=== PATIENT | male | born 1945 | race Caucasian/White ===

== ENCOUNTER 2016-09-24 02:25 | Emergency (ER) | payer OTHER ==
[~2016-09-24] VITALS: Ht 167.6 cm; Wt 96.5 kg
[2016-09-24 02:36] VITALS: TEMP 36.5; Ht 167.6 cm; Wt 96.5 kg
[2016-09-24 03:07] LABS: BASO % 0.4 %; BASO ABS # 0.02 K/uL (0-0.2); COMPLETE YES; EOS % 1.4 %; HEMATOCRIT 40.3 % (42-52); LYMPH % 18.4 %; LYMPH ABS # 1.04 K/uL (1.2-3.4); MEAN CELL VOLUME 86.7 fL (80-100); MEAN CORPUSCULAR HEMOGLOBIN 29.2 pg (25-34); MEAN CORPUSCULAR HGB CONC 33.7 g/dl (32-36); MEAN PLATELET VOLUME 8.7 fL (7.4-10.4); MONO % 7.4 %; NEUT % 72.4 %; PLATELET COUNT 164 K/uL (130-400); RED BLOOD COUNT 4.65 M/uL (4.7-6.1); WHITE BLOOD COUNT 5.65 K/uL (4.8-10.8)
[2016-09-24 03:26] LABS: BUN/CREATININE RATIO 19.1 (10-20); CREATININE 0.87 mg/dl (0.60-1.40); POTASSIUM 3.8 mmol/L (3.5-5.1)
[2016-09-24 03:35] LABS: ALB/GLOB RATIO 1.3 (0.9-2)
[2016-09-24] MEDS ORDERED: MoRPHine SULFATE 4 MG/ML 1 ML CARP\\VIAL ONE (04:16)
[2016-09-24] MEDS ORDERED: ONDANSETRON INJ 2 MG/ML 2 ML VIAL ONE (04:17)
--- NOTE | 2016-09-24 05:04 | EMERGENCY ROOM VISIT NOTE ---
History First contact with patient: 02:38 Chief Complaint: FALL Stated Complaint: FALL History of Present Illness The patient is a 71 year old male who presents to the Emergency Room with complaints of left hip pain after a fall. The patient reports that he has chronic diarrhea and got out of bed tonight to put powder in his depends. The patient states he has chronic issues with his balance and is seeing both his primary care provider and neurology for this. He states that he fell due to balance issues and landed backwards onto his left hip. He rates his discomfort a 5/10. He has normal movement of the hip. He denies any numbness or weakness. He denies any other injuries. Review of Systems A complete 6 point review of systems was reviewed with the patient with pertinent positives and negatives as per history of present illness. All else were negative. Social History Smoking Status: Never Smoker Physical Exam Vital Signs Date Time Temp Pulse Resp B/P (MAP) Pulse Ox O2 Delivery O2 Flow Rate FiO2 09/24/16 05:30 94 18 150/99 91 09/24/16 02:36 36.5 75 16 170/102 94 Room Air Physical Exam VITALS: Vitals are noted on the nurse's note and reviewed by myself. Vital signs stable. GENERAL: This is a 71-year-old male, in no acute distress, nondiaphoretic, well- developed well-nourished. HEART: Regular rate and rhythm without murmurs gallops or rubs. LUNGS: Clear to auscultation bilaterally without wheezes, rales or rhonchi. MUSCULOSKELETAL: No deformity of the left hip. No bruising or swelling. There is mild tenderness to palpation of the left hip. There is no external rotation or shortening of the leg. Full range of motion of the hip. NEURO: Patient was alert and oriented to person place and time. Normal sensation to light and sharp touch. Medical Decision & Procedures ER Provider Diagnostic Interpretation: FEMUR X-RAY: No acute fracture or dislocation within the left femur. PELVIS X-RAY: Bilateral hip arthritis noted. No acute fractures or dislocations noted. Laboratory Results 09/24/16 03:00 Red Blood Count 4.65, Mean Corpuscular Volume 86.7, Mean Corpuscular Hemoglobin 29.2, Mean Corpuscular Hemoglobin Concent 33.7, Mean Platelet Volume 8.7, Neutrophils (%) (Auto) 72.4, Lymphocytes (%) (Auto) 18.4, Monocytes (%) (Auto) 7.4, Eosinophils (%) (Auto) 1.4, Basophils (%) (Auto) 0.4, Neutrophils # (Auto) 4.09, Lymphocytes # (Auto) 1.04, Monocytes # (Auto) 0.42, Eosinophils # (Auto) 0.08, Basophils # (Auto) 0.02 09/24/16 03:00 Test 09/24/16 03:00 White Blood Count 5.65 K/uL (4.8-10.8) Red Blood Count 4.65 M/uL (4.7-6.1) Hemoglobin 13.6 g/dL (14.0-18.0) Hematocrit 40.3 % (42-52) Mean Corpuscular Volume 86.7 fL (80-100) Mean Corpuscular Hemoglobin 29.2 pg (25-34) Mean Corpuscular Hemoglobin Concent 33.7 g/dl (32-36) Platelet Count 164 K/uL (130-400) Mean Platelet Volume 8.7 fL (7.4-10.4) Neutrophils (%) (Auto) 72.4 % Lymphocytes (%) (Auto) 18.4 % Monocytes (%) (Auto) 7.4 % Eosinophils (%) (Auto) 1.4 % Basophils (%) (Auto) 0.4 % Neutrophils # (Auto) 4.09 K/uL (1.4-6.5) Lymphocytes # (Auto) 1.04 K/uL (1.2-3.4) Monocytes # (Auto) 0.42 K/uL (0.11-0.59) Eosinophils # (Auto) 0.08 K/uL (0-0.5) Basophils # (Auto) 0.02 K/uL (0-0.2) RDW Standard Deviation 40.4 fL (36.4-46.3) RDW Coefficient of Variation 12.7 % (11.5-14.5) Immature Granulocyte % (Auto) 0.0 % Immature Granulocyte # (Auto) 0.00 K/uL (0.00-0.02) Anion Gap 7.0 mmol/L (3-11) Est Creatinine Clear Calc Drug Dose 87.1 ml/min Estimated GFR () 102.1 Estimated GFR (Non- 88.1 BUN/Creatinine Ratio 19.1 (10-20) Calcium Level 8.0 mg/dl (8.5-10.1) Total Bilirubin 0.4 mg/dl (0.2-1) Aspartate Amino Transf (AST/SGOT) 15 U/L (15-37) Alanine Aminotransferase (ALT/SGPT) 21 U/L (12-78) Alkaline Phosphatase 52 U/L (45-117) Total Protein 5.8 gm/dl (6.4-8.2) Albumin 3.3 gm/dl (3.4-5.0) Globulin 2.5 gm/dl (2.5-4.0) Albumin/Globulin Ratio 1.3 (0.9-2) Chemistry Specimen Hemolysis Medications Administered Medications (Trade) Dose Ordered Sig/Malou Route Start Time Stop Time Status Last Admin Dose Admin Morphine Sulfate (MoRPHine SULFATE INJ) 4 mg STK-MED ONCE .ROUTE 09/24/16 04:16 09/24/16 04:17 DC 09/24/16 04:03 4 MG Ondansetron HCl (Zofran Inj) 4 mg STK-MED ONCE .ROUTE 09/24/16 04:17 09/24/16 04:18 DC 09/24/16 04:03 4 MG ED Course The patient was evaluated as above. Labs were drawn and IV access was obtained. Patient was medicated with 4 mg morphine IV. Patient was reevaluated and felt much better. Findings were discussed. An ambulatory trial was completed and the patient was able to walk without difficulty. Discharge instructions were reviewed with the patient. The patient verbalized understanding of my assessment and treatment plan and was discharged home in good condition. Medical Decision Differential diagnosis includes fracture, dislocation, contusion, among others. The patient is a 71-year-old male who presents today complaining of left hip pain after a fall. My interpretation of left femur and pelvis x-ray does not show any fracture or dislocation. The patient was able to walk without difficulty. He will be discharged home to follow up with his primary care provider. Conservative measures were discussed. The patient's case was reviewed with Dr. Velasquez, ED attending physician, who agreed with my assessment and treatment plan. Based on the patient's presentation and work up, I feel the patient is stable for outpatient treatment. The patient was educated to return to the emergency department for any worsening of their current condition or new/concerning symptoms. He will follow up with his PCP. Medication reconciliation: I attest that I have personally reviewed the patient 's current medication list. Blood pressure screening: Patient was found to have an elevated blood pressure and was referred to their primary care provider for recheck and further treatment. Impression Primary Impression: Fall Additional Impression: Contusion of left hip Departure Information Dispostion Home / Self-Care Condition GOOD Referrals Gideon Dillard D.O. (PCP) Patient Instructions My [facility] Additional Instructions For pain control, you can use the following amlu-hot-juuffer medicines (if >12 yo): - Regular strength (325mg/tab) Tylenol (acetaminophen) 2 tabs every 4-6 hours as needed. Do not exceed 12 tablets in a 24 hour period. Avoid taking more than 4 grams (4000 mg) of Tylenol per day. This includes any other sources of acetaminophen you may take on a regular basis. - Regular strength (200 mg/tab) Advil (ibuprofen) 1-2 tabs every 4-6 hours as needed. Do not exceed a dose of 3200 mg per day. Follow-up with your primary care provider this week. Rest and ice the area of pain. Return to the emergency department as needed for any worsening or new/ concerning symptoms. Problem Qualifiers Primary Impression: Fall Encounter type: initial encounter Qualified Codes: W19.XXXA - Unspecified fall, initial encounter Additional Impression: Contusion of left hip Encounter type: initial encounter Qualified Codes: S70.02XA - Contusion of left hip, initial encounter
[2016-09-24 05:30] VITALS: BP 150/99; PULSE 94; O2SAT 91
--- NOTE | 2016-09-24 08:32 | DIAGNOSTIC IMAGING REPORT ---
LEFT FEMUR 2 VIEWS ROUTINE, PELVIS 1 OR 2 VIEW ROUTINE CLINICAL HISTORY: fall, left hip pain COMPARISON STUDY: None. FINDINGS: No fracture or dislocation within the pelvis, hips, left femur. Soft tissues are unremarkable. The sacrum appears intact. IMPRESSION: No fracture or dislocation within the pelvis, hips, or left femur. Electronically signed by: Slim Loza M.D. 09/24/2016 8:30 AM Dictated Date/Time: 09/24/2016 8:27 AM
== END 2016-09-24 05:31 | disposition home or self-care (01) ==
LOC: C.EDB 02:33
DX: S70.02XA Contusion of left hip, initial encounter (principal); W19.XXXA Unspecified fall, initial encounter